=== PATIENT | female | born 2000 | race American Indian/Alaskan Native ===

== ENCOUNTER 2021-04-20 17:47 | Emergency (ER) | payer MEDICAID ==
[2021-04-20 17:51] VITALS: BP 120/52
[2021-04-20] MEDS ORDERED: ONDANSETRON 4 MG ODT TAB PO ONE (21:30)
[2021-04-20] MEDS ORDERED: IBUPROFEN 800 MG TAB PO ONE (21:30)
--- NOTE | 2021-04-20 21:30 | Emergency Department Report ---
ED General Adult HPI - General Chief complaint: Pain General Stated complaint: BODY ACHES Time Seen by Provider: 04/20/21 21:26 Source: EMS Mode of arrival: Ambulatory Limitations: No Limitations - History of Present Illness Initial comments: Patient presents with a 1 day history of headache associate with lower back pain. Has had nausea and vomiting. He states that he just does not feel well. He has never had a headache like this before. He woke up with it. It was gradual in onset and progressively worsened. He has no trauma. He does admit t hat he smoked "a lot of marijuana last night." He states that he smoked more than he ever had. He is not sure if that has contributed. He has had nausea and vomiting that also started. He has not been able to keep anything down. He has no dysuria frequency. There is no history of recent URI or cough or fever. Severity scale (0 -10): 0 - Related Data Previous Rx's Medication Instructions Recorded Last Taken Type Ibuprofen [Motrin] 600 mg PO Q8H PRN #30 tablet 04/20/21 Unknown Rx Ondansetron [Zofran ODT TAB] 8 mg PO Q8HR PRN #20 tab.rapdis 04/20/21 Unknown Rx cephALEXin [Keflex] 500 mg PO Q8HR #21 cap 04/20/21 Unknown Rx Allergies Allergy/AdvReac Type Severity Reaction Status Date / Time No Known Allergies Allergy Unverified 04/20/21 21:53 ED Review of Systems ROS: Stated complaint: BODY ACHES Other details as noted in HPI Comment: All other systems reviewed and negative Constitutional: fever Eyes: denies: eye pain ENT: denies: ear pain Respiratory: cough Cardiovascular: denies: chest pain Endocrine: denies: unexplained weight loss Gastrointestinal: denies: hematemesis Genitourinary: denies: hematuria Musculoskeletal: as per HPI Skin: denies: rash Neurological: denies: numbness Hematological/Lymphatic: denies: easy bruising ED Past Medical Hx - Past Medical History Previous Medical History?: No - Family History Family history: no significant - Medications Home Medications: Home Medications Medication Instructions Recorded Confirmed Last Taken Type Ibuprofen [Motrin] 600 mg PO Q8H PRN #30 tablet 04/20/21 Unknown Rx Ondansetron [Zofran ODT TAB] 8 mg PO Q8HR PRN #20 tab.rapdis 04/20/21 Unknown Rx cephALEXin [Keflex] 500 mg PO Q8HR #21 cap 04/20/21 Unknown Rx ED Physical Exam - General Limitations: No Limitations, Other (Pulse ox noted normal) General appearance: alert, in no apparent distress - Head Head exam: Present: atraumatic, normocephalic - Eye Eye exam: Present: normal appearance, EOMI - ENT ENT exam: Present: normal orophraynx, normal external ear exam - Neck Neck exam: Present: normal inspection. Absent: meningismus - Respiratory Respiratory exam: Present: normal lung sounds bilaterally. Absent: respiratory distress - Cardiovascular Cardiovascular Exam: Present: regular rate, normal rhythm - GI/Abdominal GI/Abdominal exam: Present: soft. Absent: distended, tenderness - Extremities Exam Extremities exam: Present: normal capillary refill - Back Exam Back exam: Present: tenderness (Spinous lumbar). Absent: CVA tenderness (R), CVA tenderness (L) - Neurological Exam Neurological exam: Present: alert, oriented X3, CN II-XII intact, normal gait. Absent: motor sensory deficit - Psychiatric Psychiatric exam: Present: normal affect, normal mood - Skin Skin exam: Present: warm, dry ED Course Vital Signs 04/20/21 17:50 Temperature 98.1 F Pulse Rate 96 H Respiratory 16 Rate Blood Pressure 120/52 [Left] O2 Sat by Pulse 97 Oximetry - Reevaluation(s) Reevaluation #1: 04/20/21 21:30 UA and medications were ordered. Old records noted. Reevaluation #2: 04/20/21 23:40 UA was noted. Patient was treated and discharged. ED Medical Decision Making - Medical Decision Making Patient presents with upper respiratory symptoms, headache, back pain, and petty dence of urinary tract infection. He does not appear to be septic or toxic. There is no evidence of protein in the urine there was just rhabdo. Patient very well could have coronavirus in addition to a urinary tract infection. He could have some other viral infection. Regardless, there are no adventitious presents to suggest pneumonia. He has no meningeal signs but he does not appear to be septic or toxic. He was treated symptomatically and referred for outpatient evaluation and follow-up. Critical Care Time: No Critical care attestation.: If time is entered above; I have spent that time in minutes in the direct care of this critically ill patient, excluding procedure time. ED Disposition Clinical Impression: Viral URI, Cystitis Low back pain Qualifiers: Chronicity: acute Back pain laterality: bilateral Sciatica presence: without sciatica Qualified Code(s): M54.50 - Low back pain, unspecified Acute headache Qualifiers: Headache type: unspecified Intractability: not intractable Qualified Code(s): R51.9 - Headache, unspecified Disposition: HOME / SELF CARE / HOMELESS Is pt being admited?: No Condition: Stable Instructions: Upper Respiratory Infection, Adult, [id number], Cool Mist Vaporizer, General Headache Without Cause, Back Exercises, [id number], Hemorrhagic Cystitis Additional Instructions: Drink plenty water. Use Tylenol for fever. Follow-up with your regular doctor. Isolate at home. Consider coronavirus testing as an outpatient. Return for problems or concerns. Take all the antibiotics. Prescriptions: cephALEXin [Keflex] 500 mg PO Q8HR #21 cap Ibuprofen [Motrin] 600 mg PO Q8H PRN #30 tablet PRN Reason: Pain Ondansetron [Zofran ODT TAB] 8 mg PO Q8HR PRN #20 tab.rapdis PRN Reason: Nausea Referrals: PRIMARY CARE, [Referring] - 3-5 Days CLEMENTE CAMPOS MD [Staff Physician] - 3-5 Days
[2021-04-20 22:55] LABS: Bacteria,Urine 1+ /HPF (Negative); Bilirubin,Urine NEG (Negative); Blood,Urine NEG (Negative); Color,Urine Amber (Yellow); Mucus,Urine 3+ /HPF
[2021-04-20] MEDS ORDERED: cephALEXin 500 MG CAP PO ONE (23:39)
== END 2021-04-21 00:27 | disposition home or self-care (01) ==
LOC: ED 17:47
DX: J06.9 Acute upper respiratory infection, unspecified (principal); N30.90 Cystitis, unspecified without hematuria; R51.9 Headache, unspecified; M54.50 Low back pain, unspecified
CPT/HCPCS: 81001; 87086; 99283

== ENCOUNTER 2021-07-26 16:03 | Emergency (ER) | payer MEDICAID ==
--- NOTE | 2021-07-26 20:32 | Emergency Department Report ---
Vomiting/Diarrhea - HPI Chief Complaint: Nausea/Vomiting/Diarrhea Stated Complaint: POSSIBLE FOOD POISON Duration: 1 Day Severity: moderate Nausea/Vomiting Severity: Mild Diarrhea Severity: Mild Pain Location: Generalized Pain Severity: Mild Symptoms: Yes Watery Diarrhea, Yes Able to Tolerate Fluids, Yes Recent Unusual Foods, No Bloody diarrhea, No Fever, No Recent Untreated Water, No Recent use of Antibiotics, No Family w/ Similar Symptoms, No Contacts w/ Similar Symptoms, No Rash, No Hematuria, No Recent URI Symptoms Other History: 20-year-old male presents to the ED complaining of vomiting and diarrhea after eating pizza at [employer] x 1 day ago . Patient states that he has vomited x2 and diarrhea x2. He states that he is has abdominal cramping, patient states he is able to tolerate food today. Patient denies any fever chest pain shortness of breath. No acute distress noted. No ill appearance noted. ED Review of Systems ROS: Stated complaint: POSSIBLE FOOD POISON Other details as noted in HPI Constitutional: denies: chills, fever Eyes: denies: eye pain, eye discharge, vision change ENT: denies: ear pain, throat pain Respiratory: denies: cough, shortness of breath, wheezing Cardiovascular: denies: chest pain, palpitations Endocrine: no symptoms reported Gastrointestinal: nausea, vomiting, diarrhea. denies: abdominal pain Genitourinary: denies: urgency, dysuria, discharge Musculoskeletal: denies: back pain, joint swelling, arthralgia Skin: denies: rash, lesions Neurological: denies: headache, weakness, paresthesias Psychiatric: denies: anxiety, depression Hematological/Lymphatic: denies: easy bleeding, easy bruising ED Past Medical Hx - Medications Home Medications: Home Medications Medication Instructions Recorded Confirmed Last Taken Type Ibuprofen [Motrin] 600 mg PO Q8H PRN #30 tablet 04/20/21 Unknown Rx Ondansetron [Zofran ODT TAB] 8 mg PO Q8HR PRN #20 tab.rapdis 04/20/21 Unknown Rx cephALEXin [Keflex] 500 mg PO Q8HR #21 cap 04/20/21 Unknown Rx hydrOXYzine PAMOATE [Vistaril] 25 mg PO QHS PRN #20 cap 04/21/21 Unknown Rx Dicyclomine [Bentyl] 20 mg PO QID 5 Days #20 tablet 07/26/21 Unknown Rx Promethazine [Phenergan] 25 mg PO Q6HR PRN 5 Days #20 tab 07/26/21 Unknown Rx Vomiting Diarrhea Exam - Exam General: Vital signs noted. No distress. Alert and acting appropriately. HEENT: Yes Moist Mucous Membranes, No Pharyngeal Erythema, No Pharyngeal Exudates, No Rhinorrhea, No Conjuctival Injection, No Frontal Tenderness, No Maxillary Tenderness Neck: No Adenopathy, No Rigidity Lungs: Yes Clear Lung Sounds, Yes Good Air Exchange, No Wheezes, No Stridor, No Cough, No Nasal Flaring, No Retractions, No Use of Accessory Muscles Heart exam: Regular: Yes, Murmur: No, Tachycardia: No Abdomen: Tenderness: No, Peritoneal Signs: No, Distention: No, Hyperactive Bowel sounds: No Skin exam: Rash: No, Edema: No, Normal turgor: Yes Neurologic: Alert and oriented, no deficits. Musculoskeletal: Unremarkable. ED Course Vital Signs 07/26/21 17:02 Temperature 98.5 F Pulse Rate 74 Respiratory 18 Rate Blood Pressure 116/62 [Right] O2 Sat by Pulse 98 Oximetry ED Medical Decision Making - Medical Decision Making 20-year-old male presents to the ED complaining of vomiting and diarrhea after eating pizza at [employer] x 1 day ago . Patient states that he has vomited x2 and diarrhea x2. He states that he is has abdominal cramping, patient states he is able to tolerate food today. Patient denies any fever chest pain shortness of breath. No acute distress noted. No ill appearance noted. Physical examination unremarkable. Rechecked the patient is resting quietly quietly and comfortable and feeling better. I discussed the results of diagnostic study, my clinical impression and the plan for further treatment with the patient. Patient agrees with plan and discharge at this present time. All question addressed. I have given the patient instruction regarding a diagnosis ,expectation ,follow- up and return precaution. I explained to the patient that emergent condition may arise and to return to the ED for new worsen and any new persisting condition. I have explained the importance of following up with the primary care physician or referral physician listed below has instructed. The patient verbalized understanding of discharge instruction. Critical care attestation.: If time is entered above; I have spent that time in minutes in the direct care of this critically ill patient, excluding procedure time. ED Disposition Clinical Impression: Viral gastroenteritis Disposition: HOME / SELF CARE / HOMELESS Is pt being admited?: No Does the pt Need Aspirin: No Condition: Stable Instructions: Viral Gastroenteritis, Adult Additional Instructions: Take medication as prescribed Return to the ED for any worsening symptom Prescriptions: Dicyclomine [Bentyl] 20 mg PO QID 5 Days #20 tablet Promethazine [Phenergan] 25 mg PO Q6HR PRN 5 Days #20 tab PRN Reason: Nausea Referrals: ADOLFO ROGERS MD [Primary Care Provider] - 3-5 Days Forms: Work/School Release Form(ED) Time of Disposition: 20:32
[2021-07-26 20:47] VITALS: BP 118/67
== END 2021-07-26 20:47 | disposition home or self-care (01) ==
LOC: ED 16:03
DX: R11.10 Vomiting, unspecified (principal); A08.4 Viral intestinal infection, unspecified
CPT/HCPCS: 99282